=== PATIENT | male | born 1985 | race Caucasian/White ===

== ENCOUNTER 2021-04-19 04:57 | Day surgery (SDC) | payer OTHER ==
[2021-04-15 18:00] VITALS: BMI 28.8
[2021-04-19] MEDS ORDERED: PROPOFOL 20 ML ONE ×3 (12:44→13:07)
[2021-04-19] MEDS ORDERED: MIDAZOLAM HCL 2 MG/2 ML SINGLE DOSE VIAL ONE (12:44)
[2021-04-19] MEDS ORDERED: ceFAZolin SODIUM 1 GM VIAL ONE (12:45)
[2021-04-19] MEDS ORDERED: SODIUM CHLORIDE 0.9% P/F 10 ML VIAL IJ ONE (12:45)
[2021-04-19] MEDS ORDERED: GLYCOPYRROLATE 0.2 MG/1 ML VIAL ONE (12:45)
[2021-04-19] MEDS ORDERED: oxyCODONE HCL 5 MG TABLET PO PRN (12:48)
[2021-04-19] MEDS ORDERED: ONDANSETRON 4 MG/2 ML VIAL IVPUSH PRN (12:48)
[2021-04-19] MEDS ORDERED: PROMETHAZINE HCL 25 MG/1 ML VIAL IVPUSH PRN (12:48)
[2021-04-19] MEDS ORDERED: GENTAMICIN SO4 80 MG/2 ML VIAL ONE (12:54)
[2021-04-19] MEDS ORDERED: DEXAMETHASONE SOD PHOSPHATE 4 MG/1 ML VIAL ONE (12:59)
[2021-04-19] MEDS ORDERED: KETOROLAC TROMETHAMINE 30 MG/1 ML VIAL ONE (12:59)
[2021-04-19] MEDS ORDERED: ceFAZolin SODIUM 1 GM VIAL IVPB ONE (13:00)
[2021-04-19] MEDS ORDERED: LACTATED RINGERS SOLUTION 1,000 ML IV SCH (13:00)
[2021-04-19] MEDS ORDERED: GENTAMICIN SO4 80 MG/2 ML VIAL IVPB ONE (13:04)
[2021-04-19 15:18] VITALS: TEMP 97.2
[2021-04-19] MEDS ORDERED: oxyCODONE HCL 5 MG TABLET PO ONE (16:00)
[2021-04-19] MEDS ORDERED: oxyCODONE HCL 5 MG TABLET ONE (16:01)
[2021-04-19 18:36] VITALS: BP 124/80; PULSE 88
== END 2021-04-19 16:40 | disposition home or self-care (01) ==
LOC: JASU-SURG 04:57
PROVIDERS: ATTEND Urology
PROC: 0T7D8DZ Dilation of Urethra with Intraluminal Device, Via Natural or Artificial Opening Endoscopic (ICD-10-PCS; 2021-04-19)
PROC: 0T5B8ZZ Destruction of Bladder, Via Natural or Artificial Opening Endoscopic (ICD-10-PCS; principal; 2021-04-19 14:30)
PROC: 0TND8ZZ Release Urethra, Via Natural or Artificial Opening Endoscopic (ICD-10-PCS; 2021-04-19 14:30)
PROC: 0T788DZ Dilation of Bilateral Ureters with Intraluminal Device, Via Natural or Artificial Opening Endoscopic (ICD-10-PCS; 2021-04-19 14:30)
DX: N13.1 Hydronephrosis with ureteral stricture, not elsewhere classified (principal); N30.81 Other cystitis with hematuria; N35.919 Unspecified urethral stricture, male, unspecified site; R31.0 Gross hematuria; N31.9 Neuromuscular dysfunction of bladder, unspecified; N32.89 Other specified disorders of bladder; N32.3 Diverticulum of bladder
CPT/HCPCS: 76000-TC-FY; 94760

== ENCOUNTER 2022-02-07 04:01 | Day surgery (SDC) | payer OTHER ==
[2022-02-04 16:34] VITALS: BMI 29.5
[2022-02-07] MEDS ORDERED: KETOROLAC TROMETHAMINE 30 MG/1 ML VIAL ONE (13:37)
[2022-02-07] MEDS ORDERED: MIDAZOLAM HCL 2 MG/2 ML SINGLE DOSE VIAL ONE (13:38)
[2022-02-07 14:41] VITALS: RESP 18
[2022-02-07 14:56] VITALS: BP 107/86; PULSE 90; TEMP 97.2
== END 2022-02-07 14:58 | disposition home or self-care (01) ==
LOC: JASU-SURG 04:01
PROVIDERS: ATTEND Urology
PROC: 0TF3XZZ Fragmentation in Right Kidney Pelvis, External Approach (ICD-10-PCS; principal; 2022-02-07 12:30)
DX: N20.0 Calculus of kidney (principal)

== ENCOUNTER 2022-12-12 03:57 | Day surgery (SDC) | payer OTHER ==
[2022-12-09 15:13] VITALS: BMI 30.4
[2022-12-12] MEDS ORDERED: MIDAZOLAM HCL 2 MG/2 ML SINGLE DOSE VIAL ONE (08:34)
[2022-12-12] MEDS ORDERED: GLYCOPYRROLATE 0.2 MG/1 ML VIAL ONE (08:34)
[2022-12-12] MEDS ORDERED: ONDANSETRON 4 MG/2 ML VIAL ONE ×2 (08:34→08:44)
[2022-12-12] MEDS ORDERED: LIDOCAINE HCL/PF 2% SDV 5ML VIAL ONE (08:44)
[2022-12-12 09:19] VITALS: RESP 18
[2022-12-12 09:57] VITALS: BP 135/85; PULSE 91; TEMP 97.9
== END 2022-12-12 10:44 | disposition home or self-care (01) ==
LOC: JASU-SURG 03:57
PROVIDERS: ATTEND Urology
PROC: 0TC03ZZ Extirpation of Matter from Right Kidney, Percutaneous Approach (ICD-10-PCS; principal; 2022-12-12 08:30)
DX: N20.0 Calculus of kidney (principal)

== ENCOUNTER 2023-11-13 08:06 | Observation (INO) | payer OTHER ==
[2023-11-13] MEDS ORDERED: CEFTRIAXONE 1 GM/50 ML BAG ONE (09:26)
[2023-11-13] MEDS ORDERED: ACETAMINOPHEN INJECTION 100 ML IVPB ONE (09:26)
[2023-11-13 09:30] LABS: BASO % 1.4 % (0-2.0); EOS % 4.9 % (0-4.5); HEMATOCRIT 43.4 % (35.4-49); LYMPH % 23.2 % (8-40); MCH 31.1 pg (25.7-33.7); MCHC 34.6 g/dl (32.0-35.9); MEAN CELL VOLUME 89.8 fl (80-96); MEAN PLT VOLUME 6.5 fl (7.5-11.1); MONO % 7.2 % (3.8-10.2); NEUT % 63.3 % (42.8-82.8); PLATELET COUNT 398 10^3/uL (134-434); RBC 4.83 M/mm3 (4.00-5.60); RDW 13.1 % (11.9-15.9); WHITE BLOOD COUNT 7.3 K/mm3 (4.0-10.0)
[2023-11-13] MEDS: SODIUM CHLORIDE 0.9% 500 ML INFUS.BAG IV ONE (09:31)
[2023-11-13] MEDS: ACETAMINOPHEN 1000 MG/100 ML BAG IVPB ONE (09:31)
[2023-11-13 09:37] LABS: INR 0.95 (0.83-1.09); PROTHROMBIN TIME (PATIENT) 10.8 SEC (9.7-13.0)
[2023-11-13 09:39] LABS: ACTIVATED PTT 38.1 SECONDS (25.2-36.5)
[2023-11-13 09:53] LABS: ALBUMIN 3.9 g/dl (3.4-5.0); BLOOD UREA NITROGEN 18.8 mg/dL (7-18); CALCIUM 9.2 mg/dL (8.5-10.1)
[2023-11-13 09:58] LABS: TOT PROT 7.1 g/dl (6.4-8.2)
[2023-11-13] MEDS: TAMSULOSIN HCL 0.4 MG CAP PO SCH (10:59)
[2023-11-13] MEDS: SODIUM CHLORIDE 1,000 ML IV SCH (10:59)
[2023-11-13 11:31] VITALS: BMI 28.8
[2023-11-13] MEDS ORDERED: PROPOFOL 20 ML ONE (12:45)
[2023-11-13] MEDS ORDERED: FENTANYL CITRATE/PF 50 MCG/ML VIAL ONE ×2 (12:45→13:30)
[2023-11-13] MEDS: ceFAZolin SODIUM 1 GM VIAL IVPB ONE ×2 (12:56)
[2023-11-13] MEDS: GENTAMICIN SO4 80 MG/2 ML VIAL IVPB ONE (12:56)
[2023-11-13] MEDS ORDERED: GENTAMICIN SO4 80 MG/2 ML VIAL ONE (12:56)
[2023-11-13] MEDS ORDERED: ONDANSETRON 4 MG/2 ML VIAL IVPUSH PRN (13:50)
[2023-11-13] MEDS: LACTATED RINGERS SOLUTION 1,000 ML IV SCH (15:32)
[2023-11-13 15:40] VITALS: BP 106/68; PULSE 72; RESP 18; TEMP 97.5
[2023-11-14] MEDS ORDERED: CEFTRIAXONE 1 GM in DEXTROSE 5%-WATER - 50 ML IVPB SCH (10:00)
[2023-11-14] MEDS ORDERED: OXYBUTYNIN CHLORIDE 5 MG TABLET PO SCH (10:00)
== END 2023-11-13 18:05 | disposition home or self-care (01) ==
LOC: JER 08:06 → JERBED 09:57 → J6S 10:46
PROVIDERS: ADMIT Internal Medicine; ATTEND Internal Medicine
PROC: 0T788DZ Dilation of Bilateral Ureters with Intraluminal Device, Via Natural or Artificial Opening Endoscopic (ICD-10-PCS; 2023-11-13)
PROC: 3E03329 Introduction of Other Anti-infective into Peripheral Vein, Percutaneous Approach (ICD-10-PCS; principal; 2023-11-13 11:00)
PROC: 3E033NZ Introduction of Analgesics, Hypnotics, Sedatives into Peripheral Vein, Percutaneous Approach (ICD-10-PCS; 2023-11-13 11:00)
PROC: 3E0337Z Introduction of Electrolytic and Water Balance Substance into Peripheral Vein, Percutaneous Approach (ICD-10-PCS; 2023-11-13 11:00)
PROC: 0TP98DZ Removal of Intraluminal Device from Ureter, Via Natural or Artificial Opening Endoscopic (ICD-10-PCS; 2023-11-13 11:00)
DX: T83.592A Infection and inflammatory reaction due to indwelling ureteral stent, initial encounter (principal); N39.0 Urinary tract infection, site not specified; N13.30 Unspecified hydronephrosis; R10.9 Unspecified abdominal pain; Z96.0 Presence of urogenital implants; N12 Tubulo-interstitial nephritis, not specified as acute or chronic; N31.9 Neuromuscular dysfunction of bladder, unspecified; Y62.9 Failure of sterile precautions during unspecified surgical and medical care
CPT/HCPCS: 36415; 76000-TC-FY; 80053; 84484; 85025; 85610; 85730; 86850; 86900; 86901; 88300-TC; 93005; 93010; 94760; 96361; 96365; 96375; 99285-25; C1758; C2617; G0378; J0131

== ENCOUNTER 2024-03-05 05:03 | Day surgery (SDC) | payer OTHER ==
[2024-03-01 10:44] VITALS: BMI 31.1
[2024-03-05] MEDS: ceFAZolin SODIUM 1 GM VIAL IVPB ONE
[2024-03-05] MEDS ORDERED: GENTAMICIN SO4 80 MG/2 ML VIAL ONE ×2 (07:26→07:31)
[2024-03-05] MEDS ORDERED: MIDAZOLAM HCL 2 MG/2 ML SINGLE DOSE VIAL ONE (07:28)
[2024-03-05] MEDS ORDERED: PROPOFOL 20 ML ONE ×2 (07:28→07:45)
[2024-03-05] MEDS ORDERED: ceFAZolin SODIUM 1 GM VIAL ONE (07:31)
[2024-03-05] MEDS: cefTRIAXone SODIUM 1 GM VIAL IVPB ONE (07:40)
[2024-03-05] MEDS: GENTAMICIN SO4 80 MG/2 ML VIAL IVPB ONE (07:40)
[2024-03-05] MEDS ORDERED: DEXAMETHASONE SOD PHOSPHATE 4 MG/1 ML VIAL ONE (07:48)
[2024-03-05] MEDS ORDERED: ONDANSETRON 4 MG/2 ML VIAL ONE (07:48)
[2024-03-05] MEDS ORDERED: KETOROLAC TROMETHAMINE 30 MG/1 ML VIAL ONE (07:48)
[2024-03-05] MEDS ORDERED: SEVOFLURANE 250 ML BTL ONE (07:51)
[2024-03-05] MEDS ORDERED: oxyCODONE HCL 5 MG TABLET PO PRN (08:26)
[2024-03-05] MEDS ORDERED: DEXTROSE 5%-0.45% SALINE 1,000 ML IV SCH (08:30)
[2024-03-05] MEDS ORDERED: ACETAMINOPHEN 1000 MG/100 ML BAG IVPB PRN (08:31)
[2024-03-05] MEDS ORDERED: ONDANSETRON 4 MG/2 ML VIAL IVPUSH PRN (08:31)
[2024-03-05] MEDS ORDERED: LACTATED RINGERS SOLUTION 1,000 ML IV SCH (08:45)
[2024-03-05 09:45] VITALS: RESP 16; TEMP 97.7
[2024-03-05 09:55] VITALS: BP 121/74; PULSE 90
== END 2024-03-05 10:07 | disposition home or self-care (01) ==
LOC: JASU-SURG 05:03
PROVIDERS: ATTEND Urology
PROC: 0TP98DZ Removal of Intraluminal Device from Ureter, Via Natural or Artificial Opening Endoscopic (ICD-10-PCS; principal; 2024-03-05 07:30)
PROC: BT14ZZZ Fluoroscopy of Kidneys, Ureters and Bladder (ICD-10-PCS; 2024-03-05 07:30)
DX: N13.30 Unspecified hydronephrosis (principal)
CPT/HCPCS: 76000-TC-FY; 94760; C1758; C1769